=== PATIENT | female | born 1980 | race Caucasian/White ===

== ENCOUNTER 2022-03-18 20:10 | Emergency (ER) | payer OTHER, SELFPAY ==
[2022-03-18] MEDS ORDERED: Dexamethasone 4 mg/ml Vial ONE (21:04)
== END 2022-03-18 21:19 | disposition home or self-care (01) ==
LOC: ERS 20:10
DX: J02.9 Acute pharyngitis, unspecified (principal); J30.9 Allergic rhinitis, unspecified; F17.210 Nicotine dependence, cigarettes, uncomplicated
CPT/HCPCS: 99283; J1100

== ENCOUNTER 2024-12-26 07:01 | Inpatient (IN) | payer OTHER ==
[2024-12-26] MEDS ORDERED: Ondansetron PF 4 MG/2 ML Vial IVP PRN (11:03)
[2024-12-26 11:14] VITALS: BMI 41.1
[2024-12-26] MEDS: Mineral Oil ENEMA PR SCH (11:59)
[2024-12-26] MEDS: GoLYTELY 4,000 ml Bottle PO SCH (11:59)
[2024-12-26] MEDS: Ketorolac Tromethamine 30 MG (1 mL) VIAL IVP PRN (13:11)
[2024-12-26] MEDS: Famotidine 20 MG TAB PO SCH (20:03)
[2024-12-26] MEDS: Acetaminophen 500 MG TAB PO PRN (23:30)
[2024-12-27] MEDS: Calcium Carbonate 500 MG ChewTAB PO PRN (04:26)
[2024-12-27] MEDS: PNEUMOC 20-VAL CONJ-DIP CRM/PF 0.5 ML SYRINGE IM ONE (08:24)
[2024-12-27 08:50] LABS: #Basophils 0.04 10x3/uL (0.0-0.2); #Eosinophils 0.15 10x3/uL (0.0-0.7); #Monocytes 1.03 10x3/uL (0.11-0.59); #Neutrophils 7.68 10x3/uL (1.40-6.50); %Basophils 0.3 % (0.0-1.0); %Eosinophils 1.3 % (0.0-10.0); %Lymphocytes 25.1 % (21.0-51.0); %Monocytes 8.6 % (0.0-10.0); %Neutrophils 64.4 % (42.0-75.0); Hematocrit 35.4 % (36.0-47.0); Hemoglobin 12.1 g/dL (12.0-16.0); Mean Corpuscular Hemoglobin 30.7 pg (27.0-31.0); Mean Corpuscular Volume 89.8 fL (78.0-98.0); Platelet Count 251 10x3/uL (130-400); Red Blood Cell (RBC) Count 3.94 mill/uL (4.20-5.40); White Blood Cell (WBC) Count 11.92 10x3/uL (4.8-10.8)
[2024-12-27 09:27] LABS: Anion Gap 12 mmol/L (10-20); BUN (Urea Nitrogen) 6 mg/dL (7.0-18.7); Calc. Creatinine Clearance 185 mL/min (70-130); Calcium 8.3 mg/dL (7.8-10.44); Carbon Dioxide 18 mmol/L (22-29); Chloride 112 mmol/L (98-107); Glucose 84 mg/dL (70-105); Potassium 3.7 mmol/L (3.5-5.1); Sodium 138 mmol/L (136-145)
[2024-12-27 12:28] VITALS: BP 127/80; TEMP 98.3
== END 2024-12-27 13:49 | disposition home or self-care (01) | DRG 392 ==
LOC: T4-A 10:22 → OBSVTOIN 10:56
PROVIDERS: ADMIT Internal Medicine; ATTEND Internal Medicine
DX: K59.00 Constipation, unspecified (principal); I47.29 Other ventricular tachycardia; K52.89 Other specified noninfective gastroenteritis and colitis; I10 Essential (primary) hypertension; Z98.890 Other specified postprocedural states; Z95.810 Presence of automatic (implantable) cardiac defibrillator; Z90.49 Acquired absence of other specified parts of digestive tract; Z90.89 Acquired absence of other organs; Z79.899 Other long term (current) drug therapy; Z93.3 Colostomy status; Z88.5 Allergy status to narcotic agent; Z88.8 Allergy status to other drugs, medicaments and biological substances; Z72.0 Tobacco use
CPT/HCPCS: 36415; 80048; 85025; J1885; J2270; J7030